=== PATIENT | female | born 1960 | race Hispanic/Latino ===

== ENCOUNTER 2021-03-21 12:41 | Inpatient (IN) | payer BC ==
[~2021-03-21] VITALS: Ht 160 cm; Wt 57.7 kg
[2021-03-21] MEDS ORDERED: LACTATED RINGERS 1000ML 1,000 ML IV SCH (13:30)
[2021-03-21 14:20] LABS: BASOPHILS % (AUTO) 0.3 % (0.0-5.0); EOSINOPHILS % (AUTO) 0.2 % (0.0-8.0); HEMATOCRIT 33.3 % (36-48); LYMPHOCYTES % (AUTO) 9.7 % (21.0-51.0); MEAN CORPUSCULAR HEMOGLOBIN 30.2 pg (27.0-33.0); MEAN CORPUSCULAR HGB CONC 36.3 g/dL (32.0-36.0); MONOCYTES % (AUTO) 5.3 % (3.0-13.0); NEUTROPHILS % (AUTO) 78.7 % (40.0-77.0); NUCLEATED RED BLOOD CELLS 0.6 % (0.0-0.19); PLATELET COUNT (AUTO) 201 K/uL (130-400); RED BLOOD CELL COUNT(AUTO) 4.01 MIL/uL (4.00-5.50); RED CELL DISTRIBUTION WIDTH 12.8 % (11.0-15.5); WHITE BLOOD COUNT (AUTO) 11.9 K/uL (4.8-10.8)
[2021-03-21 14:34] LABS: INR 1.12 (0.85-1.15); PROTHROMBIN TIME 12.1 SEC (9.6-11.6)
[2021-03-21 14:35] LABS: PARTIAL THROMBOPLASTIN TIME 21.9 SEC (26.3-35.5)
[2021-03-21] MEDS ORDERED: LACTATED RINGERS 1000ML 1,000 ML IV ONE (15:00)
[2021-03-21 15:02] LABS: B-TYPE NATRIURETIC PEPTIDE 43 pg/mL (0-100)
[2021-03-21 15:03] LABS: ALBUMIN 3.3 g/dL (3.5-5.0); BILIRUBIN,TOTAL 0.7 mg/dL (0.2-1.0); CREATININE 1.5 mg/dL (0.5-1.5); MAGNESIUM 1.4 mg/dL (1.80-2.40); PHOSPHORUS 3.1 mg/dL (2.5-4.9); TOTAL PROTEIN, SERUM 7.8 g/dL (6.0-8.3)
[2021-03-21 15:04] LABS: POTASSIUM 2.5 mmol/L (3.5-5.1)
[2021-03-21] MEDS ORDERED: MORPHINE 4 MG SYG ONE (15:16)
[2021-03-21] MEDS ORDERED: ONDANSETRON 4MG INJ ONE (15:16)
[2021-03-21] MEDS ORDERED: MORPHINE 4 MG SYG IV ONE (15:30)
[2021-03-21] MEDS ORDERED: ONDANSETRON 4MG INJ IVP ONE (15:30)
[2021-03-21] MEDS ORDERED: MAGNESIUM 2GM PREMIX 50ML 50 ML IV SCH (16:00)
[2021-03-21] MEDS ORDERED: ACETAMINOPHEN 325 MG TAB PO PRN ×2 (16:30)
[2021-03-21] MEDS: 0.9%NACL 1000ML 1,000 ML IV SCH (17:35)
[2021-03-21] MEDS: ZOSYN 3.375GM +NS 50ML IV SCH (17:35)
[2021-03-21 17:50] LABS: APPEARANCE,URINE Clear (CLEAR); BILIRUBIN,URINE Negative (NEGATIVE); COLOR,URINE Yellow (YELLOW); GLUCOSE, URINE (UA) Negative (NEGATIVE); KETONES,URINE Negative (NEGATIVE); LEUKOCYTE ESTERASE ,URINE Trace (NEGATIVE); NITRATE,URINE Negative (NEGATIVE); OCCULT BLOOD,URINE Negative (NEGATIVE); PROTEIN,URINE Negative (NEGATIVE); UROBILINOGEN,URINE 0.2 mg/dL (0.2-1.0)
[2021-03-21 17:59] LABS: AMPHET/METH SCREEN,URINE NEGATIVE (NEGATIVE); BARBITURATE SCREEN, URINE NEGATIVE (NEGATIVE); BENZODIAZEPINES SCREEN,URINE NEGATIVE (NEGATIVE); CANNABINOID SCREEN,URINE POSITIVE (NEGATIVE); COCAINE SCREEN,URINE NEGATIVE (NEGATIVE); OPIATE SCREEN,URINE NEGATIVE (NEGATIVE); PHENCYCLIDINE SCREEN,URINE NEGATIVE (NEGATIVE)
[2021-03-21] MEDS ORDERED: 0.9%NACL 1000ML 1,000 ML IV ONE (18:00)
[2021-03-21] MEDS ORDERED: PHARMACY COMMUNICATION MISC SCH (18:00)
[2021-03-21] MEDS ORDERED: PAMIDRONATE DISODIUM 90MG VIAL 60 MG in 0.9%NACL 1000ML 1,000 ML IV SCH (18:00)
[2021-03-21 18:27] LABS: BACTERIA,URINE Few /HPF (None Seen); RBC,URINE 0-1 /HPF (0-1)
[2021-03-21 18:28] LABS: COARSE GRANULAR CASTS,URINE 0-2 /LPF (None Seen); SQUAMOUS EPITHELIAL CELL,UR Rare /HPF (0-2)
[2021-03-21 18:42] LABS: CREATININE 1.3 mg/dL (0.5-1.5)
[2021-03-21 18:44] LABS: POTASSIUM 2.7 mmol/L (3.5-5.1)
[2021-03-21] MEDS ORDERED: POTASSIUM CHLORIDE 10MEQ/100ML 100 ML IV ONE ×3 (18:45→20:41)
[2021-03-21] MEDS ORDERED: LIDOCAINE HCL-MPF 1% 2ML VIAL IV PRN ×3 (20:36→21:30)
[2021-03-21 21:00] VITALS: BP 139/112
[2021-03-21] MEDS ORDERED: FAMOTIDINE 20MG VIAL IV SCH (21:00)
[2021-03-21] MEDS ORDERED: ZOSYN 3.375GM +NS 50ML IV SCH (21:00)
[2021-03-21] MEDS ORDERED: MAGNESIUM 2GM PREMIX 50ML 50 ML IV PRN (21:30)
[2021-03-21] MEDS ORDERED: PANTOPRAZOLE 40 MG/VIAL IVP SCH (21:30)
[2021-03-21] MEDS ORDERED: POTASSIUM CHLORIDE 20MEQ/100ML 100 ML IV PRN ×2 (21:30)
[2021-03-21] MEDS ORDERED: KCL 20 MEQ ERTAB PO PRN (21:30)
[2021-03-21] MEDS ORDERED: POTASSIUM CHLORIDE 10% ELIXIR 20 MEQ/15 ML UDCUP PO PRN (21:30)
[2021-03-21 21:44] LABS: CHLORIDE,URINE RANDOM 54 mmol/L (110-250); POTASSIUM,URINE RANDOM 23 mmol/L (25-125)
[2021-03-21 22:00] VITALS: BP 170/100
[2021-03-21 23:00] VITALS: BP 170/76
[2021-03-21 23:09] LABS: CREATININE 1.3 mg/dL (0.5-1.5)
[2021-03-21 23:12] LABS: POTASSIUM 2.7 mmol/L (3.5-5.1)
[2021-03-21] MEDS: POTASSIUM CHLORIDE 10MEQ/100ML 100 ML IV PRN (23:57)
[2021-03-22] VITALS (26 sets, daily range): BP systolic 88–186; BP diastolic 54–116
[2021-03-22] MEDS ORDERED: ONDANSETRON 4MG INJ IVP PRN
[2021-03-22] MEDS: POTASSIUM CHLORIDE 10MEQ/100ML 100 ML IV PRN ×3 (01:45→06:28)
[2021-03-22] MEDS: ZOSYN 3.375GM +NS 50ML IV SCH ×3 (01:45→22:02)
[2021-03-22] MEDS: 0.9%NACL 1000ML 1,000 ML IV SCH ×3 (02:00→14:51)
[2021-03-22 03:32] LABS: HEMATOCRIT 27.7 % (36-48); MEAN CORPUSCULAR HGB CONC 36.1 g/dL (32.0-36.0); MEAN CORPUSCULAR VOLUME 83.2 fL (79-99); NUCLEATED RED BLOOD CELLS 0.6 % (0.0-0.19); RED BLOOD CELL COUNT(AUTO) 3.33 MIL/uL (4.00-5.50); WHITE BLOOD COUNT (AUTO) 10.5 K/uL (4.8-10.8)
[2021-03-22 04:05] LABS: CREATININE 1.2 mg/dL (0.5-1.5); MAGNESIUM 2.3 mg/dL (1.80-2.40); PHOSPHORUS 2.4 mg/dL (2.5-4.9); POTASSIUM 3.1 mmol/L (3.5-5.1); THYROID STIMULATING HORMONE 0.74 uIU/mL (0.36-3.74); URIC ACID 9.5 mg/dL (2.6-7.2)
[2021-03-22] MEDS ORDERED: MORPHINE 4 MG SYG IV ONE ×2 (06:00)
[2021-03-22 06:07] LABS: ABG BASE EXCESS 4.1 mmol/L (-2.0-3.0); ABG OXYGEN SATURATION 90.3 % (95.0-99.0); ABG PCO2 34 mmHg (32-45)
[2021-03-22] MEDS ORDERED: HEPARIN 5,000 UNIT VIAL SQ SCH (06:30)
[2021-03-22] MEDS: POTASSIUM CHLORIDE 20MEQ/100ML 100 ML IV PRN ×2 (09:11→17:29)
[2021-03-22] MEDS: PANTOPRAZOLE 40 MG/VIAL IVP SCH (09:12)
[2021-03-22] MEDS ORDERED: CALCITONIN 400 UNIT VIAL SQ SCH ×2 (12:00→13:00)
[2021-03-22] MEDS: DEXMEDETOMIDINE 400MCG/NS100ML IV PRN (12:28)
[2021-03-22] MEDS: HEPARIN 5,000 UNIT VIAL SQ SCH ×2 (14:57→22:03)
[2021-03-22 15:44] LABS: ALBUMIN 2.5 g/dL (3.5-5.0); BILIRUBIN,TOTAL 0.7 mg/dL (0.2-1.0); CREATININE 1.4 mg/dL (0.5-1.5); POTASSIUM 3.7 mmol/L (3.5-5.1)
[2021-03-22] MEDS: HYDRALAZINE 20MG/ML VIAL IV PRN (18:01)
[2021-03-22] MEDS ORDERED: 0.9%NACL 50ML 50 ML IV ONE (21:57)
[2021-03-22] MEDS: FUROSEMIDE 20MG VIAL IV SCH (22:02)
[2021-03-22] MEDS: SOLU-MEDROL 40MG VIAL IVP SCH (22:02)
[2021-03-23] VITALS (24 sets, daily range): BP systolic 103–163; BP diastolic 53–96
[2021-03-23] MEDS: DEXMEDETOMIDINE 400MCG/NS100ML IV PRN (03:23)
[2021-03-23 03:51] LABS: HEMATOCRIT 24.6 % (36-48); MEAN CORPUSCULAR HEMOGLOBIN 29.8 pg (27.0-33.0); MEAN CORPUSCULAR HGB CONC 34.1 g/dL (32.0-36.0); MEAN CORPUSCULAR VOLUME 87.2 fL (79-99); NUCLEATED RED BLOOD CELLS 0.2 % (0.0-0.19); PLATELET COUNT (AUTO) 109 K/uL (130-400); RED BLOOD CELL COUNT(AUTO) 2.82 MIL/uL (4.00-5.50); RED CELL DISTRIBUTION WIDTH 13.5 % (11.0-15.5)
[2021-03-23 04:05] LABS: MAGNESIUM 1.8 mg/dL (1.80-2.40); PHOSPHORUS 2.4 mg/dL (2.5-4.9); URIC ACID 9.5 mg/dL (2.6-7.2)
[2021-03-23 04:33] LABS: LYMPHOCYTES % (MANUAL) 1 % (22-44); MAN.DIFF COMMENT-IMPRESSION MANUAL DIFFERENTIAL; MONOCYTES % (MANUAL) 4 % (2-9); MYELOCYTES % 3 % (0-0); REACTIVE LYMPHOCYTES 1 % (0-0); SEGMENTED NEUTROPHILS % 91 % (40-70)
[2021-03-23 04:34] LABS: PLATELET MORPHOLOGY COMMENT SLIGHTLY DECREASED
[2021-03-23] MEDS ORDERED: 0.9%NACL 50ML 50 ML IV ONE ×2 (06:01→20:31)
[2021-03-23] MEDS: HEPARIN 5,000 UNIT VIAL SQ SCH (06:11)
[2021-03-23] MEDS: SOLU-MEDROL 40MG VIAL IVP SCH ×3 (06:12→21:24)
[2021-03-23] MEDS: ZOSYN 3.375GM +NS 50ML IV SCH ×3 (06:12→21:22)
[2021-03-23] MEDS: CALCITONIN 400 UNIT VIAL SQ SCH ×2 (09:00→21:00)
[2021-03-23] MEDS: 0.9%NACL 1000ML 1,000 ML IV SCH ×2 (09:07→17:14)
[2021-03-23] MEDS: PANTOPRAZOLE 40 MG/VIAL IVP SCH (09:08)
[2021-03-23 09:33] LABS: ALBUMIN 2.5 g/dL (3.5-5.0); BILIRUBIN,TOTAL 0.7 mg/dL (0.2-1.0); CREATININE 1.8 mg/dL (0.5-1.5); POTASSIUM 3.7 mmol/L (3.5-5.1); TOTAL PROTEIN, SERUM 6.1 g/dL (6.0-8.3)
[2021-03-23] MEDS ORDERED: PROC10TA13 PO (12:41)
[2021-03-23] MEDS ORDERED: ONDA8TAB12 PO (12:41)
[2021-03-23] MEDS ORDERED: ZOLP5TAB8 PO (12:41)
[2021-03-23] MEDS ORDERED: HYDR4 PO (12:41)
[2021-03-23] MEDS ORDERED: FENT-77 TD (12:41)
[2021-03-23] MEDS ORDERED: BUPR200T34 PO (12:41)
[2021-03-23] MEDS ORDERED: CIPR500S5 PO (12:41)
[2021-03-23] MEDS ORDERED: LOPE2CAP PO (12:41)
[2021-03-23] MEDS ORDERED: FENTANYL 25 MCG/HR PATCH TD SCH (13:00)
[2021-03-23] MEDS: HYDROMORPHONE HCL 2 MG TAB PO PRN (15:50)
[2021-03-23] MEDS: FUROSEMIDE 20MG VIAL IV SCH (21:22)
[2021-03-24] VITALS (23 sets, daily range): BP systolic 138–176; BP diastolic 70–109
[2021-03-24] MEDS: HYDROMORPHONE HCL 2 MG TAB PO PRN ×2 (03:40→17:15)
[2021-03-24] MEDS: 0.9%NACL 1000ML 1,000 ML IV SCH ×2 (03:40→12:23)
[2021-03-24 04:15] LABS: BASOPHILS % (AUTO) 0.1 % (0.0-5.0); HEMATOCRIT 23.4 % (36-48); LYMPHOCYTES % (AUTO) 6.6 % (21.0-51.0); MEAN CORPUSCULAR HEMOGLOBIN 29.9 pg (27.0-33.0); MEAN CORPUSCULAR HGB CONC 34.6 g/dL (32.0-36.0); MEAN CORPUSCULAR VOLUME 86.3 fL (79-99); MONOCYTES % (AUTO) 4.1 % (3.0-13.0); NEUTROPHILS % (AUTO) 83.7 % (40.0-77.0); NUCLEATED RED BLOOD CELLS 0.3 % (0.0-0.19); PLATELET COUNT (AUTO) 129 K/uL (130-400); RED BLOOD CELL COUNT(AUTO) 2.71 MIL/uL (4.00-5.50); RED CELL DISTRIBUTION WIDTH 13.7 % (11.0-15.5); WHITE BLOOD COUNT (AUTO) 11.6 K/uL (4.8-10.8)
[2021-03-24 04:31] LABS: ALBUMIN 2.4 g/dL (3.5-5.0); BILIRUBIN,TOTAL 0.7 mg/dL (0.2-1.0); CREATININE 2.1 mg/dL (0.5-1.5)
[2021-03-24 04:54] LABS: POTASSIUM 2.9 mmol/L (3.5-5.1)
[2021-03-24] MEDS: POTASSIUM CHLORIDE 20MEQ/100ML 100 ML IV PRN ×2 (04:58→10:13)
[2021-03-24] MEDS ORDERED: 0.9%NACL 50ML 50 ML IV ONE (05:41)
[2021-03-24] MEDS: ZOSYN 3.375GM +NS 50ML IV SCH ×2 (05:43→14:24)
[2021-03-24] MEDS: SOLU-MEDROL 40MG VIAL IVP SCH ×2 (05:43→14:24)
[2021-03-24] MEDS: CALCITONIN 400 UNIT VIAL SQ SCH (09:00)
[2021-03-24] MEDS: PANTOPRAZOLE 40 MG/VIAL IVP SCH (10:01)
[2021-03-24] MEDS ORDERED: KCL 20 MEQ ERTAB PO SCH (10:30)
[2021-03-24] MEDS ORDERED: METOPROLOL TARTRATE 1 MG/ML 5ML VIAL IV PRN (14:30)
[2021-03-24] MEDS: HYDRALAZINE 20MG/ML VIAL IV PRN (18:12)
[2021-03-24] MEDS: FUROSEMIDE 20MG VIAL IV SCH (21:36)
[2021-03-25] VITALS (7 sets, daily range): BP systolic 114–161; BP diastolic 76–94
[2021-03-25] MEDS: 0.9%NACL 1000ML 1,000 ML IV SCH ×2 (01:02→06:48)
[2021-03-25] MEDS: HYDROMORPHONE HCL 2 MG TAB PO PRN ×2 (01:07→05:42)
[2021-03-25 03:45] LABS: BASOPHILS % (AUTO) 0.2 % (0.0-5.0); EOSINOPHILS % (AUTO) 0.1 % (0.0-8.0); HEMATOCRIT 23.2 % (36-48); LYMPHOCYTES % (AUTO) 7.2 % (21.0-51.0); MEAN CORPUSCULAR HEMOGLOBIN 30.8 pg (27.0-33.0); MEAN CORPUSCULAR HGB CONC 35.3 g/dL (32.0-36.0); MEAN CORPUSCULAR VOLUME 87.2 fL (79-99); MONOCYTES % (AUTO) 6.8 % (3.0-13.0); NEUTROPHILS % (AUTO) 76.3 % (40.0-77.0); NUCLEATED RED BLOOD CELLS 1.1 % (0.0-0.19); PLATELET COUNT (AUTO) 126 K/uL (130-400); RED BLOOD CELL COUNT(AUTO) 2.66 MIL/uL (4.00-5.50); WHITE BLOOD COUNT (AUTO) 12.2 K/uL (4.8-10.8)
[2021-03-25 04:06] LABS: MAGNESIUM 1.7 mg/dL (1.80-2.40); PHOSPHORUS 2.4 mg/dL (2.5-4.9); POTASSIUM 3.1 mmol/L (3.5-5.1)
[2021-03-25] MEDS: POTASSIUM CHLORIDE 20MEQ/100ML 100 ML IV PRN ×2 (04:29→05:41)
[2021-03-25] MEDS ORDERED: AMLODIPINE 5 MG TAB PO SCH (09:00)
[2021-03-25] MEDS: PANTOPRAZOLE 40 MG/VIAL IVP SCH (09:04)
== END 2021-03-25 10:26 | disposition hospice, home (50) | DRG 640 ==
LOC: EDBD 12:41 → EDH 12:41 → EDHIP 15:34 → 2DH 20:59
PROVIDERS: ADMIT Internal Medicine; ATTEND Internal Medicine
PROC: 05HY33Z Insertion of Infusion Device into Upper Vein, Percutaneous Approach (ICD-10-PCS; principal; 2021-03-22)
DX: E83.52 Hypercalcemia (principal); J96.01 Acute respiratory failure with hypoxia; G92.8 Other toxic encephalopathy; N17.9 Acute kidney failure, unspecified; J98.11 Atelectasis; C79.51 Secondary malignant neoplasm of bone; C78.7 Secondary malignant neoplasm of liver and intrahepatic bile duct; M62.82 Rhabdomyolysis; E87.1 Hypo-osmolality and hyponatremia; J90 Pleural effusion, not elsewhere classified; M48.56XA Collapsed vertebra, not elsewhere classified, lumbar region, initial encounter for fracture; R91.1 Solitary pulmonary nodule; R03.0 Elevated blood-pressure reading, without diagnosis of hypertension; E87.6 Hypokalemia; E79.0 Hyperuricemia without signs of inflammatory arthritis and tophaceous disease; D64.9 Anemia, unspecified; E83.42 Hypomagnesemia; E86.1 Hypovolemia; E86.0 Dehydration; F12.90 Cannabis use, unspecified, uncomplicated; N18.9 Chronic kidney disease, unspecified; D72.829 Elevated white blood cell count, unspecified; E88.09 Other disorders of plasma-protein metabolism, not elsewhere classified; K82.8 Other specified diseases of gallbladder; G89.3 Neoplasm related pain (acute) (chronic); Z51.5 Encounter for palliative care; Z85.3 Personal history of malignant neoplasm of breast; Z90.12 Acquired absence of left breast and nipple; Z92.21 Personal history of antineoplastic chemotherapy
CPT/HCPCS: 36415; 36600; 70450; 71045; 71250; 74176; 80048; 80053; 80305; 81001; 82140; 82306; 82330; 82435; 82436; 82550; 82803; 82947; 83605; 83735; 83880; 83935; 83970; 84100; 84132; 84133; 84145; 84156; 84166; 84295; 84300; 84443; 84484; 84550; 85018; 85025; 85027; 85610; 85651; 85730; 86140; 86325; 86334; 87040; 87088; 92610; 93005; 99291; C1894; C9113; G0378; J0360; J0630; J1644; J1940; J2270; J2405; J2430; J2543; J2920; J3475; J3480; J3490; J7030